=== PATIENT | male | born 1990 | race Hispanic/Latino ===

== ENCOUNTER 2024-06-23 01:01 | Emergency (ER) | payer BC ==
[2024-06-23] MEDS: Penicillin V Potassium 500 MG Tab PO ONE (01:47)
[2024-06-23] MEDS: Ketorolac 30 MG/ML SDV IM ONE (01:47)
== END 2024-06-23 01:42 | disposition home or self-care (01) ==
LOC: JD.ED 01:01
DX: K02.9 Dental caries, unspecified (principal); R51.9 Headache, unspecified; Z88.0 Allergy status to penicillin
CPT/HCPCS: 96372; 99283; A9270; J1885